=== PATIENT | female | born 1990 | race American Indian/Alaskan Native ===

== ENCOUNTER 2020-10-19 17:24 | Emergency (ER) | payer SELFPAY ==
[2020-10-19 18:31] VITALS: BP 121/82
--- NOTE | 2020-10-19 18:38 | Emergency Department Report ---
ED General Adult HPI - General Chief complaint: Extremity Injury, Upper Stated complaint: TATTOO INFECTION Time Seen by Provider: 10/19/20 18:30 Source: patient Mode of arrival: Ambulatory Limitations: No Limitations - History of Present Illness Initial comments: 30-year-old -[place] female patient presents with complaints of possible infection to her tattoo x 4 days. Patient states she had a tattoo 1 week ago her left forearm and that it began to become painful with redness and drainage 4 days ago. She denies any fever/chills/sweats, bony pain, or difficulty moving her arm or hand. No current pain per patient. She is unsure of her last tetanus vaccine. Severity scale (0 -10): 0 - Related Data Previous Rx's Medication Instructions Recorded Last Taken Type Clindamycin [Clindamycin CAP] 300 mg PO Q6H 10 Days #40 capsule 10/19/20 Unknown Rx Mupirocin [Bactroban 2% OINT] 1 applic TP TID 10 Days #1 tube 10/19/20 Unknown Rx ED Review of Systems ROS: Stated complaint: TATTOO INFECTION Other details as noted in HPI Constitutional: denies: chills, diaphoresis, fever, malaise, weakness Musculoskeletal: denies: joint swelling, arthralgia Skin: change in color Neurological: denies: numbness, paresthesias ED Past Medical Hx - Surgical History Past Surgical History?: Yes Additional Surgical History: 2010 - Social History Smoking Status: Never Smoker Substance Use Type: None - Medications Home Medications: Home Medications Medication Instructions Recorded Confirmed Last Taken Type Clindamycin [Clindamycin CAP] 300 mg PO Q6H 10 Days #40 capsule 10/19/20 Unknown Rx Mupirocin [Bactroban 2% OINT] 1 applic TP TID 10 Days #1 tube 10/19/20 Unknown Rx ED Physical Exam - General Limitations: No Limitations General appearance: alert, in no apparent distress - Head Head exam: Present: atraumatic, normocephalic - Eye Eye exam: Present: normal appearance - Respiratory Respiratory exam: Absent: respiratory distress - Cardiovascular Cardiovascular Exam: Present: regular rate - Neurological Exam Neurological exam: Present: alert, oriented X3 - Psychiatric Psychiatric exam: Present: normal affect, normal mood - Skin Skin exam: Present: warm, dry, other (Erythema noted surrounding tattoo on the left distal posterior forearm with mild drainage noted to open sore; no bony tenderness or decreased range of motion of the wrist or hand noted; minimal swelling noted) ED Course Vital Signs 10/19/20 18:30 Temperature 99.0 F Pulse Rate 95 H Respiratory 18 Rate Blood Pressure 121/82 [Left] O2 Sat by Pulse 98 Oximetry ED Medical Decision Making - Medical Decision Making 30-year-old -[place] female patient presents with complaints of possible infection to her tattoo x 4 days. Patient states she had a tattoo 1 week ago her left forearm and that it began to become painful with redness and drainage 4 days ago. She denies any fever/chills/sweats, bony pain, or difficulty moving her arm or hand. No current pain per patient. She is unsure of her last tetanus vaccine. We will treat infection with clindamycin and mupirocin. Recommend follow-up with primary care doctor in 3 days for recheck. Discussed wound care and signs and symptoms that should prompt immediate return to the emergency department in detail with patient who verbalizes understanding. She is well-appearing, her vitals are normal, she is stable for discharge home. Critical care attestation.: If time is entered above; I have spent that time in minutes in the direct care of this critically ill patient, excluding procedure time. ED Disposition Clinical Impression: Cellulitis Qualifiers: Site of cellulitis: extremity Site of cellulitis of extremity: upper extremity Laterality: left Qualified Code(s): L03.114 - Cellulitis of left upper limb Disposition: - TO HOME OR SELFCARE Is pt being admited?: No Condition: Stable Instructions: Cellulitis, Adult Prescriptions: Mupirocin [Bactroban 2% OINT] 1 applic TP TID 10 Days #1 tube Clindamycin [Clindamycin CAP] 300 mg PO Q6H 10 Days #40 capsule Referrals: PRIMARY CARE, [Referring] - 3-5 Days
[2020-10-19] MEDS ORDERED: DIPHtheria,PERTUSSIS(ACELL),TETANUS VACCINE/PF 0.5 ML VIAL IM ONE (18:39)
== END 2020-10-19 19:23 | disposition home or self-care (01) ==
LOC: ED 17:24
DX: L03.114 Cellulitis of left upper limb (principal); Z79.899 Other long term (current) drug therapy; Z98.890 Other specified postprocedural states
CPT/HCPCS: 90471; 90715; 99282